=== PATIENT | male | born 1970 | race Caucasian/White ===

== ENCOUNTER 2023-11-22 19:58 | Emergency (ER) | payer BC, SELFPAY ==
--- NOTE | 2023-11-22 19:59 | XRR_ITS ---
PROCEDURE INFORMATION: Exam: XR Chest Exam date and time: 11/22/2023 8:36 PM Age: 53 years old Clinical indication: Pain; Chest pressure; Additional info: Cp TECHNIQUE: Imaging protocol: Radiologic exam of the chest. Views: 1 view. COMPARISON: No relevant prior studies available. FINDINGS: Lungs: Unremarkable. No consolidation. Pleural spaces: Unremarkable. No pleural effusion. No pneumothorax. Heart/Mediastinum: Cardiac silhouette appears mildly enlarged on this portable chest. Bones/joints: Unremarkable. XR/XR chest 1V portable [id number] IMPRESSION: Mild cardiomegaly otherwise negative chest.
[2023-11-22 20:00] VITALS: BP 160/92; PULSE 67; RESP 16; TEMP 36.4; O2SAT 98; BMI 27.6
--- NOTE | 2023-11-22 20:01 | ECG_ITS ---
[facility] Test Date: 2023-11-22 Pat Name: Ezekiel Hooks Department: Room: Gender: Male Aws Developer: : 1970 Requested By: Milton Joseph Order Number: [id number] Janie MD: Justin Urban M.D. Measurements Intervals [place] Rate: 64 P: 55 WA: 189 QRS: 15 QRSD: 137 T: 39 QT: 371 QTc: 384 Interpretive Statements SINUS RHYTHM INTRAVENTRICULAR CONDUCTION DELAY [130+ ms QRS DURATION] No previous ECG available for comparison Electronically Signed On 11-22-2023 21:49:35 CDT by Justin Urban M.D. [id number]
[2023-11-22 20:30] VITALS: BP 148/89; PULSE 61; O2SAT 95
[2023-11-22 20:40] LABS: Basophils % 0.5 %; Eosinophils # 0.4 10^3/uL (0.0-0.8); Eosinophils % 5.9 %; Hematocrit 36.9 % (37-53); Lymphocytes # 2.7 10^3/uL (0.8-4.8); Mean Corpuscular HGB Conc 33.9 g/dL (30-55); Mean Corpuscular Hemoglobin 33.6 pg (27-33); Mean Corpuscular Volume 99.2 fl (82-101); Mean Platelet Volume 10.1 fL (7.4-10.4); Monocytes # 0.9 10^3/uL (0.2-0.9); Monocytes % 12.4 %; Neutrophils # 3.38 10^3/uL (1.8-7.7); Neutrophils % 44.9 %; Nucleated Red Blood Cells % 0 %; Platelet Count 276 10^3/cmm (157-399); Red Blood Count 3.72 10^6/uL (3.85-5.65); Red Cell Distribution Width 12.1 % (12.1-15.1); White Blood Count 7.51 10^3/uL (3.29-11.43)
--- NOTE | 2023-11-22 20:47 | CTR_ITS ---
PROCEDURE INFORMATION: Exam: CTA Head With Contrast, Arteriography Exam date and time: 11/22/2023 8:51 PM Age: 53 years old Clinical indication: Speech disturbance; Slurred speech; Additional info: AMS TECHNIQUE: Imaging protocol: Computed tomographic angiography of the head with contrast. Exam focused on the arteries. 3D rendering (Not supervised by radiologist): MIP and/or 3D reconstructed images were created by the technologist. Radiation optimization: All CT scans at this facility use at least one of these dose optimization techniques: automated exposure control; mA and/or kV adjustment per patient size (includes targeted exams where dose is matched to clinical indication); or iterative reconstruction. Contrast material: OMNI 350; Contrast volume: 100 ml; Contrast route: INTRAVENOUS (IV); COMPARISON: CT head wo con* [id number] 11/22/2023 8:51 PM RADIATION DOSE METRICS: Total DLP (mGy-cm): 1135.67 FINDINGS: ANTERIOR CIRCULATION: Right internal carotid artery: Intracranial segment is patent with no significant stenosis. No aneurysm. Right middle cerebral artery: No occlusion or significant stenosis. No aneurysm. Right anterior cerebral artery: No occlusion or significant stenosis. No aneurysm. Left internal carotid artery: Intracranial segment is patent with no significant stenosis. No aneurysm. Left middle cerebral artery: No occlusion or significant stenosis. No aneurysm. Left anterior cerebral artery: No occlusion or significant stenosis. No aneurysm. POSTERIOR CIRCULATION: Right vertebral artery: No occlusion or significant stenosis. No aneurysm. Left vertebral artery: No occlusion or significant stenosis. No aneurysm. Basilar artery: No occlusion or significant stenosis. No aneurysm. Right posterior cerebral artery: origin arising the right ICA. No occlusion or significant stenosis. No aneurysm. Left posterior cerebral artery: No occlusion or significant stenosis. No aneurysm. Brain: No intracranial hemorrhage, mass effect, or midline shift. Cerebral ventricles: No ventriculomegaly. Bones/joints: Unremarkable. No acute fracture. Soft tissues: Unremarkable. PROCEDURE INFORMATION: Exam: CTA Neck With Contrast Exam date and time: 11/22/2023 8:51 PM Age: 53 years old Clinical indication: Speech disturbance; Slurred speech; Additional info: AMS TECHNIQUE: Imaging protocol: Computed tomographic angiography of the neck with contrast. Exam focused on the cervical segments of the vasculature. 3D rendering (Not supervised by radiologist): MIP and/or 3D reconstructed images were created by the technologist. Radiation optimization: All CT scans at this facility use at least one of these dose optimization techniques: automated exposure control; mA and/or kV adjustment per patient size (includes targeted exams where dose is matched to clinical indication); or iterative reconstruction. Contrast material: OMNI 350; Contrast volume: 100 ml; Contrast route: INTRAVENOUS (IV); COMPARISON: CT head wo con* [id number] 11/22/2023 8:51 PM RADIATION DOSE METRICS: Total DLP (mGy-cm): 1135.67 FINDINGS: Right common carotid artery: No stenosis. No dissection or occlusion. Right internal carotid artery: No stenosis of the extracranial segment. No dissection or occlusion. Right external carotid artery: No occlusion or stenosis of the origin. Left common carotid artery: No stenosis. No dissection or occlusion. Left internal carotid artery: No stenosis of the extracranial segment. No dissection or occlusion. Left external carotid artery: No occlusion or stenosis of the origin. Right vertebral artery: No stenosis. No dissection or occlusion. Left vertebral artery: No stenosis. No dissection or occlusion. Soft tissues: Normal. No significant soft tissue swelling. Bones/joints: No acute fracture. CT/CT angio headneck* [id number] IMPRESSION: No large vessel occlusion or significant stenosis. IMPRESSION: No stenosis or occlusion. REFERENCES: NASCET CRITERIA. The degree of stenosis in the cervical segment of the internal carotid artery is based on NASCET criteria. Normal is no stenosis. Mild is less than 50% stenosis. Moderate is 50-69% stenosis. Severe is 70% to 99% stenosis. Total occlusion is no detectable patent lumen.
[2023-11-22] MEDS: iohexol 350 mg/mL 500 mL Btl (per mL) IV (20:51)
[2023-11-22 21:00] VITALS: BP 157/87; PULSE 78; O2SAT 95
[2023-11-22 21:09] LABS: Troponin(5th) Baseline < 6 ng/L (0-15)
[2023-11-22 21:13] LABS: Alanine Aminotransferase 21 U/L (0-41); Albumin Level 4.5 g/dL (3.5-5.2); Alkaline Phosphatase 68 U/L (40-130); Blood Urea Nitrogen 12 mg/dL (6-20); Carbon Dioxide 22 mmol/L (22-29); Chloride 100 mmol/L (98-107); Creatinine Clr Calc Pharmacy 148.9672; Glomerular Filtration Rate 117.1 mL/min (90-130); Glucose 92 mg/dL (65-115); Lipase 24 U/L (13-60); NT Pro B Type Natriuretic Pept 55 pg/mL (0-125); Osmolality Calculated 285 mOsm/kg (285-295); Sodium 138 mmol/L (136-145); Total Bilirubin 0.2 mg/dL (0.15-1.2); Total Protein 7.5 g/dL (6.6-8.7)
[2023-11-22 21:16] LABS: Anion Gap 20.1 (5-19); Aspartate Amino Transferase 27 U/L (0-40); Potassium 4.1 mmol/L (3.5-5.1)
[2023-11-22 21:17] LABS: Alcohol Level 347 mg/dL (0-10)
[2023-11-22 21:25] LABS: INR 0.97 (0.8-1.2)
[2023-11-22 21:30] VITALS: BP 133/78; PULSE 71; RESP 23; O2SAT 98
--- NOTE | 2023-11-22 21:38 | ED_ITS ---
HPI - Altered Mental Status 2 General: Chief Complaint: Altered Mental Status Stated Complaint: chest pain pressure sob Time Seen by Provider: 11/22/23 20:34 History of Present Illness: 53-year-old male presents emergency depa rtment after being found by his family members while sitting in the car. He does appear to have slurred speech and is confused he states he had 2 drinks of alcohol but has been going through a lot of stress lately. His states that she went out to the car and he had slurred speech approximately 1 hour after his last known well time. She is concerned that he might have had a stroke. He denies chest pain dizziness or lightheaded feeling. He does have a significant smell of alcohol about his person. Review of Systems 2 General: Reports: 10 or more systems reviewed and unremarkable except in HPI and below Neuro: Reports: Slurred speech present Physical Exam 2 Narrative: Constitutional: the patient appears well nourished and with normal development. Vital signs reviewed as documented. HENMT: Normocephalic, atraumatic. External ears normal appearance without drainage. Nose without drainage, normal appearance. Mucus membranes moist. Neck is supple, No jugular venous distension, trachea is midline, no appreciable carotid bruits. No lymphadenopathy. No meningeal signs. Flexion, extension and lateral rotation is without pain. Eyes: Pupils are equal, round, reactive to light and accommodation. No scleral icterus. Extra-ocular movement are intact. Thorax is symmetrical and with equal rise and fall with respirations. Resp: Lungs are clear to auscultation. No wheezes, rales, crackles or ronchi at present. Cardio: Regular rate and rhythm. Positive S1, S2. No appreciable murmurs, rubs or gallops. GI: Abdominal exam reveals normal bowel sounds to all quadrants. No organomegaly. No obvious palpable masses noted. No hepatomegally appreciated. Soft, non-tender to palpation. Extremity: Extremities are non-edematous and both femoral and pedal pulses are 2+ and equal bilaterally. Moves all extremities well, sensation in all extremities. Neuro: Alert and oriented x4, person, place, time and situation. Cranial nerves II through XII are grossly intact, there is no focal neurological deficits that I can appreciate at present. Sensation intact to all extremities. 2-point discrimination intact. Light touch intact to all extremities. Motor strength in the upper and lower extremities are equal and bilateral 5/5. Psych: Cooperative, calm, normal thought process, appropriate judgment. Skin: No lesions, rashes. No gross abnormalities noted. Back: Symmetrical, no obvious deformity, No CVA tenderness Course 2 Vital Signs: Vital signs: Vital Signs Temperature 97.6 F 11/22/23 20:00 Pulse Rate 71 11/22/23 21:30 Respiratory Rate 23 H 11/22/23 21:30 Blood Pressure 133/78 11/22/23 21:30 Pulse Oximetry 98 11/22/23 21:30 Oxygen Delivery Me thod Room Air 11/22/23 21:30 MDM - Altered Mental Status Medical Decision Making Physical exam completed and documented I did obtain a CBC which is essentially unremarkable and a CMP without significant findings. I did obtain a CTA head and neck given his presentation slurred speech which appears to be negative. His alcohol level did come back significantly elevated at 347 and after discussing these findings with the patient he did openly admit to drinking an excessive amount of alcohol because of his recent stress. NIH Stroke Scale/Score (NIHSS) on 11/22/2023 RESULT SUMMARY: 0 points NIH Stroke Scale INPUTS: 1A: Level of consciousness ?> 0 = Alert; keenly responsive 1B: Ask month and age ?> 0 = Both questions right 1C: 'Blink eyes' & 'squeeze hands' ?> 0 = Performs both tasks 2: Horizontal extraocular movements ?> 0 = Normal 3: Visual simon ?> 0 = No visual loss 4: Facial palsy ?> 0 = Normal symmetry 5A: Left arm motor drift ?> 0 = No drift for 10 seconds 5B: Right arm motor drift ?> 0 = No drift for 10 seconds 6A: Left leg motor drift ?> 0 = No drift for 5 seconds 6B: Right leg motor drift ?> 0 = No drift for 5 seconds 7: Limb Ataxia ?> 0 = No ataxia 8: Sensation ?> 0 = Normal; no sensory loss 9: Language/aphasia ?> 0 = Normal; no aphasia 10: Dysarthria ?> 0 = Normal 11: Extinction/inattention ?> 0 = No abnormality Differential diagnosis includes electrolyte abnormality to include hyponatremia, CVA, alcohol intoxication, substance abuse, Pierre's palsy, Lab Data I reviewed the patient's lab results. 11/22/23 20:35 11/22/23 20:35 Radiology Impressions Chest X-Ray 11/22/23 19:59 IMPRESSION: Mild cardiomegaly otherwise negative chest. Head/Neck CTA 11/22/23 20:47 IMPRESSION: No large vessel occlusion or significant stenosis. IMPRESSION: No stenosis or occlusion. REFERENCES: NASCET CRITERIA. The degree of stenosis in the cervical segment of the internal carotid artery is based on NASCET criteria. Normal is no stenosis. Mild is less than 50% stenosis. Moderate is 50-69% stenosis. Severe is 70% to 99% stenosis. Total occlusion is no detectable patent lumen. Laboratory Results WBC 7.51 10^3/uL (3.29-11.43) 11/22/23 20:35 RBC 3.72 10^6/uL (3.85-5.65) L 11/22/23 20:35 Hgb 12.50 g/dL (11.27-16.99) 11/22/23 20:35 Hct 36.9 % (37-53) L 11/22/23 20:35 MCV 99.2 fl (82-101) 11/22/23 20:35 MCH 33.6 pg (27-33) H 11/22/23 20:35 MCHC 33.9 g/dL (30-55) 11/22/23 20:35 RDW 12.1 % (12.1-15.1) 11/22/23 20:35 Plt Count 276 10^3/cmm (157-399) 11/22/23 20:35 MPV 10.1 fL (7.4-10.4) 11/22/23 20:35 Neut % (Auto) 44.9 % 11/22/23 20:35 Lymph % (Auto) 36.0 % 11/22/23 20:35 [place] % (Auto) 12.4 % 11/22/23 20:35 Eos % (Auto) 5.9 % 11/22/23 20:35 Baso % (Auto) 0.5 % 11/22/23 20:35 Neut # (Auto) 3.38 10^3/uL (1.8-7.7) 11/22/23 20:35 Lymph # (Auto) 2.7 10^3/uL (0.8-4.8) 11/22/23 20:35 [place] # (Auto) 0.9 10^3/uL (0.2-0.9) 11/22/23 20:35 Eos # (Auto) 0.4 10^3/uL (0.0-0.8) 11/22/23 20:35 Baso # (Auto) 0.0 10^3/uL (0.0-0.1) 11/22/23 20:35 Nucleated RBC % (auto) 0 % 11/22/23 20:35 Nucleated RBCs # 0.0 /100WBC 11/22/23 20:35 PT 13.20 SECONDS (12.1-14.9) 11/22/23 21:10 INR 0.97 (0.8-1.2) 11/22/23 21:10 Sodium 138 mmol/L (136-145) 11/22/23 20:35 Potassium 4.1 mmol/L (3.5-5.1) 11/22/23 20:35 Chloride 100 mmol/L (98-107) 11/22/23 20:35 Carbon Dioxide 22 mmol/L (22-29) 11/22/23 20:35 Anion Gap 20.1 (5-19) H 11/22/23 20:35 BUN 12 mg/dL (6-20) 11/22/23 20:35 Creatinine 0.7 mg/dL (0.7-1.2) 11/22/23 20:35 GFR Calculation 117.1 mL/min (90-130) 11/22/23 20:35 Glucose 92 mg/dL (65-115) 11/22/23 20:35 Calculated Osmolality 285 mOsm/kg (285-295) 11/22/23 20:35 Calcium 9.0 mg/dL (8.5-10.5) 11/22/23 20:35 Total Bilirubin 0.2 mg/dL (0.15-1.2) 11/22/23 20:35 AST 27 U/L (0-40) 11/22/23 20:35 ALT 21 U/L (0-41) 11/22/23 20:35 Alkaline Phosphatase 68 U/L (40-130) 11/22/23 20:35 Troponin T Baseline < 6 ng/L (0-15) 11/22/23 20:35 NT-Pro-B Natriuret Pep 55 pg/mL (0-125) 11/22/23 20:35 Total Protein 7.5 g/dL (6.6-8.7) 11/22/23 20:35 Albumin 4.5 g/dL (3.5-5.2) 11/22/23 20:35 Globulin 3.0 g/dL (1.3-4.6) 11/22/23 20:35 Lipase 24 U/L (13-60) 11/22/23 20:35 Ethyl Alcohol 347 mg/dL (0-10) H* 11/22/23 20:35 All radiology interpretation(s) finalized by discharge Discharge Plan Discharge Patient Disposition: Home Clinical Impression: Altered mental status Qualifiers: Altered mental status type: transient alteration of awareness Qualified Code(s): R40.4 - Transient alteration of awareness Alcoholic intoxication Qualifiers: Complication of substance-induced condition: uncomplicated Qualified Code(s): F 10.920 - Alcohol use, unspecified with intoxication, uncomplicated Condition: Stable Discharge Orders: Discharge ED (Routine); Ordered 11/22/23 Ordered By: Milton Josehp Referrals: Carissa Ureña FNP [Primary Care Provider] - Discharge Activity: Resume usual activity Patient Instructions: Altered Mental Status (ED), Opioid Safety, Pain Management Activity Restrictions/Additional Instructions: Activity Restrictions/Additional Instructions: Thank you for choosing [facility] for your healthcare needs today. Please realize that you were seen in the Emergency Department and that we are providing you with an emergency medical screening exam and this may not be a complete and all inclusive of all the testing and or medical work-up that you may need to determine your ailment or severity of your illness. It is very important that you follow-up as instructed with your Primary care provider or Specialist for additional evaluation and to discuss your medical treatment plan. You may contact the behavioral health crisis center at [facility] for guidance and assistance in getting into a program to help your chronic alcohol use and dependence. Coding Level of Care Code ED Lease Out Worker for Manuel Bass
== END 2023-11-22 22:14 | disposition home or self-care (01) ==
PROVIDERS: Emergency Medicine; Emergency Provider Internal Medicine; PCP Nurse Practitioner Family
DX: F10.920 Alcohol use, unspecified with intoxication, uncomplicated (principal); Y90.8 Blood alcohol level of 240 mg/100 ml or more; R40.4 Transient alteration of awareness
CPT/HCPCS: 36415; 70496; 70498; 71045; 80053; 80307; 83690; 83880; 84484; 85025; 85610; 93005; 99285; Q9967